=== PATIENT | female | born 1940 | race Caucasian/White ===

== ENCOUNTER → 2016-10-24 | Outpatient (CLI) | payer OTHER, MEDICARE ==
[~2016-10-24] MED LIST: IOPAMIDOL (ISOVUE-300) 100 ML BTL IV ONE
--- NOTE | 2016-10-24 19:14 | CT ---
"CT Abdomen, With Contrast History: Upper abdominal pain, early satiety, bloating, history of colorectal cancer, with surgery, chemotherapy, and radiation 20 years ago. Technique: Axial contrast-enhanced images were obtained through the abdomen following the uneventful administration of oral and 85 mL Isovue-300 intravenous contrast. Dose reduction techniques were ut ilized. Comparison: Abdominal ultrasound December 28, 2006. Findings: There are scattered noncalcified pulmonary nodules including a 5 mm left lower lobe nodule (series #3, image #50) and a 4 mm left lower lobe nodule (image #38). Heart size is normal. Tiny hypodensities in the liver are jvt-jiawb-ev-characterize. There is focal fatty infiltration adj acent to the falciform ligament. There is mild asymmetric fatty replacement in the pancreas. The ga llbladder, spleen, pancreas, and adrenals are normal. A tiny hypodensity in the right kidney is too- [id number], statistically likely to represent a cyst. Minimal cortical scarring is noted in the left kidney. A moderate hiatal hernia is present. The visible colon and small bowel are normal caliber, without e vidence of obstruction. Moderate stool is present in the colon. There is no free fluid or air. The aorta is normal caliber, with mild atherosclerosis. The IVC, hepatic, portal, splenic, and super ior mesenteric veins are patent. Accessory right hepatic vein is noted. No pathologically enlarged lymph nodes are identified. Retroperitoneal surgical clips are present. Transitional vertebra at the lumbosacral junction is numbered as L5. There is grade 1 anterolisthesi s of L3 on L4. Severe degenerative change is present at L4-L5. A L2 hemangioma is noted. Impression: 1. Moderate hiatal hernia. 2. Small pulmonary nodules, measuring up to 5 mm. Given the patient's history of cancer, if there i s no previous study to document stability of these findings, follow-up CT is recommended in 6-12 yanni hs, then at 18-24 months from the initial study if no change. 3. 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 4. Additional findings, as above. E:amm A Follow-Up Required test result has been communicated via the [employer] | Critical Result syst em on 10/27/2016 9:48, Message ID [id number]."
== END ==
LOC: FIMAGING 10:20
PROVIDERS: ATTEND Internal Medicine
DX: K44.9 Diaphragmatic hernia without obstruction or gangrene (principal); R91.1 Solitary pulmonary nodule; M51.36 Other intervertebral disc degeneration, lumbar region; M43.16 Spondylolisthesis, lumbar region; Z85.038 Personal history of other malignant neoplasm of large intestine; Z92.3 Personal history of irradiation; Z92.21 Personal history of antineoplastic chemotherapy
CPT/HCPCS: 74160; Q9967

== ENCOUNTER → 2017-04-28 | Outpatient (CLI) | payer OTHER, MEDICARE | LOC: BMCIMAGING 08:29 | PROVIDERS: ATTEND Internal Medicine | DX: Z12.31 Encounter for screening mammogram for malignant neoplasm of breast (principal) | CPT/HCPCS: G0202 ==

== ENCOUNTER → 2018-06-24 | Outpatient (CLI) | payer OTHER, MEDICARE | LOC: BMCIMAGING 09:47 | PROVIDERS: ATTEND Physician Assistant | DX: K59.00 Constipation, unspecified (principal) ==